=== PATIENT | female | born 1975 | race Caucasian/White ===

== ENCOUNTER → 2016-08-22 | Outpatient (CLI) | payer OTHER ==
[~2016-08-22] MED LIST: ACET50TA PO; IBUP600T26 PO
[2016-08-26 00:06] LABS: ANTI-SACCHAROMYCES CEREV. IgA 25.6 Units (0.0-24.9); ANTI-SACCHAROMYCES CEREV. IgG <20.0 Units (0.0-24.9); ENDOMYSIAL ABY IgA Negative (Negative); TISSUE TRANSGLUTAMINASE IgG <2 U/mL (0-5)
== END ==
LOC: M LAB 13:45
PROVIDERS: ATTEND Internal Medicine Gastroenterology
DX: K92.1 Melena (principal); K59.00 Constipation, unspecified; R19.4 Change in bowel habit; R14.3 Flatulence

== ENCOUNTER → 2016-10-05 | Outpatient (REF) | payer OTHER | LOC: M LAB REF 13:10 | PROVIDERS: ATTEND Obstetrics & Gynecology | DX: Z12.4 Encounter for screening for malignant neoplasm of cervix (principal) ==

== ENCOUNTER → 2017-12-27 | Outpatient (REF) | payer OTHER ==
[2017-12-29 15:01] LABS: HPV HYBRID CAPTURE II Negative (Negative)
== END ==
LOC: M LAB REF 17:44
DX: Z01.419 Encounter for gynecological examination (general) (routine) without abnormal findings (principal); Z11.51 Encounter for screening for human papillomavirus (HPV)

== ENCOUNTER 2019-05-10 08:23 | Outpatient (RCR) | payer OTHER ==
[~2019-05-10 08:23] MED LIST changes: -ACET50TA PO; +MAPA500T17 PO
== END 2019-05-11 ==
LOC: M PT 08:23
PROVIDERS: ATTEND Physician Assistant Surgical
DX: M76.62 Achilles tendinitis, left leg (principal); Z98.890 Other specified postprocedural states

== ENCOUNTER 2019-06-07 08:30 | Outpatient (RCR) | payer OTHER | END 2019-06-09 | LOC: M PT 08:30 | PROVIDERS: ATTEND Physician Assistant Surgical | DX: M76.62 Achilles tendinitis, left leg (principal); Z98.890 Other specified postprocedural states ==

== ENCOUNTER 2019-07-09 08:21 | Outpatient (RCR) | payer OTHER | END 2019-07-10 | LOC: M PT 08:21 | PROVIDERS: ATTEND Physician Assistant Surgical | DX: Z98.890 Other specified postprocedural states (principal); M76.62 Achilles tendinitis, left leg ==

== ENCOUNTER → 2019-08-09 | Outpatient (RCR) | payer OTHER | LOC: M PT 07-11 08:27 | PROVIDERS: ATTEND Physician Assistant Surgical | DX: Z98.890 Other specified postprocedural states (principal); M76.62 Achilles tendinitis, left leg ==

== ENCOUNTER 2019-09-06 08:27 | Outpatient (RCR) | payer OTHER | END 2019-09-09 | LOC: M PT 08:27 | PROVIDERS: ATTEND Physician Assistant Surgical | DX: Z47.89 Encounter for other orthopedic aftercare (principal); M76.62 Achilles tendinitis, left leg; Z98.890 Other specified postprocedural states ==

== ENCOUNTER 2019-10-08 08:30 | Outpatient (RCR) | payer OTHER | END 2019-10-09 | LOC: M PT 08:30 | PROVIDERS: ATTEND Physician Assistant Surgical | DX: Z98.890 Other specified postprocedural states (principal); M76.62 Achilles tendinitis, left leg ==

== ENCOUNTER 2020-04-07 15:50 | Outpatient (RCR) | payer OTHER | END 2020-04-10 | LOC: M PT 15:50 | PROVIDERS: ATTEND Physician Assistant Surgical | DX: Z47.89 Encounter for other orthopedic aftercare (principal); M67.88 Other specified disorders of synovium and tendon, other site ==

== ENCOUNTER 2020-05-05 13:37 | Outpatient (RCR) | payer OTHER | END 2020-05-11 | disposition home or self-care (01) | LOC: M PT 13:37 | PROVIDERS: ATTEND Physician Assistant Surgical | DX: Z47.89 Encounter for other orthopedic aftercare (principal); M67.88 Other specified disorders of synovium and tendon, other site ==

== ENCOUNTER 2020-05-22 14:28 | Outpatient (RCR) | payer OTHER | END 2020-06-08 | LOC: M PT 14:28 | PROVIDERS: ATTEND Physician Assistant Surgical | DX: M76.62 Achilles tendinitis, left leg (principal) ==

== ENCOUNTER 2020-08-06 16:00 | Outpatient (RCR) | payer OTHER | END 2020-08-08 | LOC: M PT 16:00 | PROVIDERS: ATTEND Orthopaedic Surgery | DX: Z98.890 Other specified postprocedural states (principal); M79.672 Pain in left foot ==

== ENCOUNTER 2020-09-04 13:45 | Outpatient (RCR) | payer OTHER | END 2020-09-08 | LOC: M PT 13:45 | PROVIDERS: ATTEND Orthopaedic Surgery | DX: Z98.890 Other specified postprocedural states (principal); M79.672 Pain in left foot ==

== ENCOUNTER 2020-10-07 09:53 | Outpatient (RCR) | payer OTHER | END 2020-10-08 | LOC: M PT 09:53 | PROVIDERS: ATTEND Orthopaedic Surgery | DX: M79.672 Pain in left foot (principal); Z98.890 Other specified postprocedural states ==

== ENCOUNTER 2020-11-04 16:45 | Outpatient (RCR) | payer OTHER | END 2020-11-08 | LOC: M PT 16:45 | PROVIDERS: ATTEND Orthopaedic Surgery | DX: Z98.890 Other specified postprocedural states (principal) ==

== ENCOUNTER 2020-11-24 16:45 | Outpatient (RCR) | payer OTHER | END 2020-12-09 | LOC: M PT 16:45 | PROVIDERS: ATTEND Orthopaedic Surgery | DX: Z98.890 Other specified postprocedural states (principal); Z47.89 Encounter for other orthopedic aftercare ==

== ENCOUNTER → 2022-04-14 | Outpatient (REF) | payer OTHER | LOC: M SFHCWAGY 13:21 | PROVIDERS: ATTEND Specialist | DX: Z01.419 Encounter for gynecological examination (general) (routine) without abnormal findings (principal) | CPT/HCPCS: 87624; G0123 ==

== ENCOUNTER → 2022-04-14 | Outpatient (CLI) | payer OTHER | LOC: M WHC 10:11 | PROVIDERS: ATTEND Specialist | DX: Z12.31 Encounter for screening mammogram for malignant neoplasm of breast (principal) ==

== ENCOUNTER → 2023-12-29 | Outpatient (CLI) | payer OTHER ==
[~2023-12-29] MED LIST changes: +ISOVUE-370 76% 100ML VIAL ONE
== END ==
LOC: M PLAIMG 11:08
PROVIDERS: ATTEND Family Medicine
DX: R51.9 Headache, unspecified (principal); J32.3 Chronic sphenoidal sinusitis
CPT/HCPCS: 70470; 70488; Q9967

== ENCOUNTER → 2025-04-08 | Outpatient (CLI) | payer OTHER ==
[~2025-04-08] MED LIST changes: -ISOVUE-370 76% 100ML VIAL ONE
== END ==
LOC: M WHC 13:42
PROVIDERS: ATTEND Specialist
DX: Z12.31 Encounter for screening mammogram for malignant neoplasm of breast (principal); R92.323 Mammographic fibroglandular density, bilateral breasts

== ENCOUNTER → 2025-04-08 | Outpatient (REF) | payer OTHER ==
[2025-04-10 14:43] LABS: HPV APTIMA Not Detected (Not Detected)
== END ==
LOC: M PLALAB 09:14
PROVIDERS: ATTEND Specialist
DX: Z01.419 Encounter for gynecological examination (general) (routine) without abnormal findings (principal)
CPT/HCPCS: 87624; G0123